=== PATIENT | male | born 1995 | race Caucasian/White ===

== ENCOUNTER 2018-05-02 22:17 | Emergency (ER) | payer OTHER ==
[~2018-05-02] VITALS: Ht 177.8 cm; Wt 86.4 kg
[2018-05-02 22:24] VITALS: TEMP 99.5
[2018-05-03 00:30] VITALS: BP 132/83; PULSE 71
== END 2018-05-03 00:30 | disposition home or self-care (01) ==
LOC: COL.ER 22:17
DX: S06.0X1A Concussion with loss of consciousness of 30 minutes or less, initial encounter (principal); S00.03XA Contusion of scalp, initial encounter; F10.129 Alcohol abuse with intoxication, unspecified; W19.XXXA Unspecified fall, initial encounter; W22.8XXA Striking against or struck by other objects, initial encounter